=== PATIENT | female | born 1935 | race Caucasian/White ===

== ENCOUNTER 2018-09-04 12:37 | Emergency (ER) | payer MEDICARE, OTHER, MEDICAID ==
[2018-09-04 14:13] LABS: ADD MAN DIFF? NO
[2018-09-04 14:22] LABS: HEMOGLOBIN 10.1 g/dl (12.0-16.0); LYMPHOCYTES % 33.6 % (15.0-51.0); MEAN CORPUSCULAR HEMOGLOBIN 31.9 pg (29.0-33.0); MEAN CORPUSCULAR HGB CONC 33.7 g/dl (32.0-37.0); MEAN CORPUSCULAR VOLUME 94.6 fl (82.0-101.0); MEAN PLATELET VOLUME 8.4 fl (7.4-10.4); MONOCYTE # 0.3 10^3/ul (0.3-0.9); MONOCYTES % 5.6 % (0.0-11.0); NEUTROPHIL # 3.6 10^3/ul (1.6-7.5); NEUTROPHILS % 60.5 % (39.0-77.0); PLATELET COUNT 206 10^3/UL (140-415); RED BLOOD COUNT 3.17 10^6/ul (4.20-5.40); RED CELL DISTRIBUTION WIDTH 12.5 % (11.5-14.5)
[2018-09-04 14:22] LABS: WHITE BLOOD COUNT 5.9 10^3/ul (4.8-10.8)
[2018-09-04] MEDS: morphine 2 MG INJ IV (14:28)
[2018-09-04] MEDS: SOD CHLORIDE 0.9% 1,000 ML IV (14:28)
[2018-09-04] MEDS: ONDANSETRON 4 MG INJ IV (14:28)
[2018-09-04 14:32] LABS: LIPASE 178 U/L (23-300)
[2018-09-04 14:38] LABS: INR 1.24; PROTIME 15.7 Sec (11.9-14.9); PT RATIO 1.2
[2018-09-04 14:45] LABS: AMYLASE 88 U/L (11-123)
[2018-09-04 14:46] LABS: TROPONIN-I < 0.012 ng/ml (0.000-0.120)
[2018-09-04 15:58] LABS: ADD UMIC YES; UR ASCORBIC ACID NEGATIVE (NEGATIVE); UR BILIRUBIN (Dip) NEGATIVE (NEGATIVE); UR BLOOD (Dip) 2+ mg/dL (NEGATIVE); UR CLARITY CLEAR (CLEAR); UR COLOR COLORLESS (YELLOW); UR GLUCOSE (Dip) NEGATIVE (NEGATIVE); UR KETONES (Dip) NEGATIVE (NEGATIVE); UR LEUKOCYTE ESTERASE (Dip) NEGATIVE Leu/ul (NEGATIVE); UR NITRITE (Dip) NEGATIVE (NEGATIVE); UR RBC 2 /HPF (0-5); UR SPECIFIC GRAVITY (Dip) 1.002 (1.003-1.030); UR TOTAL PROTEIN (Dip) NEGATIVE (NEGATIVE); UR UROBILINOGEN (Dip) NEGATIVE (NEGATIVE); UR WBC 0 /HPF (0-5)
[2018-09-04 16:35] LABS: ALANINE AMINOTRANSFERASE 17 IU/L (13-69); ALBUMIN 4.5 g/dl (3.3-4.9); ALBUMIN/GLOBULIN RATIO 0.71; ALKALINE PHOSPHATASE 98 IU/L (42-121); ANION GAP 7 (5-13); ASPARTATE AMINO TRANSFERASE 52 IU/L (15-46); BILIRUBIN,INDIRECT 0.2 mg/dl (0-1.1); BILIRUBIN,TOTAL 0.2 mg/dl (0.2-1.3); BLOOD UREA NITROGEN 15 mg/dl (7-20); CALCIUM 9.2 mg/dl (8.4-10.2); CARBON DIOXIDE 22 mmol/L (21-31); CHLORIDE 102 mmol/L (97-110); CREATININE 0.64 mg/dl (0.44-1.00); GLUCOSE 121 mg/dl (70-220); POTASSIUM 4.1 mmol/L (3.5-5.1); SODIUM 131 mmol/L (135-144); TOTAL PROTEIN 10.8 g/dl (6.1-8.1)
== END 2018-09-04 17:46 | disposition home or self-care (01) ==
LOC: E/R 12:37
DX: R10.9 Unspecified abdominal pain (principal); I10 Essential (primary) hypertension
CPT/HCPCS: 71045; 74176; 80053; 81001; 82150; 83690; 84484; 85025; 85610; 85730; 87086; 93005; 96374; 96375; 99285-25